=== PATIENT | male | born 1950 | race Caucasian/White ===

== ENCOUNTER 2016-08-12 08:32 | Outpatient (CLI) | payer MEDICARE ==
[2015-10-01 11:34] VITALS: BMI 18.2
--- NOTE | ~2016-08-12 | CN ---
PATIENT NAME:MAKEDA CHARLES MEDICAL RECORD: [id number] : 52 LOCATION:.ER ADMIT DATE: ACCOUNT: [id number] CONSULTING PHYSICIAN: NAOMI ROCA MD REFERRING PHYSICIAN: CHIDI BENÍTEZ MD DATE OF CONSULTATION: 08/12/2016 CARDIOLOGY CONSULTATION DIAGNOSES: 1. Unstable angina. 2. New onset atrial fibrillation, unknown duration. 3. End-stage renal failure, on dialysis. 4. Hypertension. HISTORY OF PRESENT ILLNESS: This is a gentleman with no previous cardiac history during dialysis today, began having severe left-sided chest pain, is a very compatible with angina, a dull aching, squeezing sensation on the left side. His EKG is with atrial fibrillation. He has not been told this in the past. He has no acute ST-T abnormalities. He has no cardiac history in the past. He is on Coreg for blood pressure. He has been treated as an outpatient over the past months with intermittent antibiotics. His chest x-ray is compatible with right middle lobe pneumonia. PHYSICAL EXAMINATION: GENERAL APPEARANCE: Well-nourished, well-developed, appears stated age. Level of distress, comfortable. PSYCHIATRIC: Mental status, alert, normal affect. Orientation, oriented to time, place and person. EYES: Lids and conjunctiva, noninjected. No discharge, no pallor. ENT: Lips, teeth, gums, normal dentition. Oropharynx, no cyanosis, no pallor. NECK: Carotid arteries, bilateral normal upstroke, no bruits, no thrills. JUGULAR VEINS: No jugular venous pressure or distention. CERVICAL LYMPH NODES: Nontender, nonenlarged. THYROID: Not enlarged. Nontender. No nodules. LUNGS: Respiratory effort, unlabored. CHEST: Normal curvature. No thoracic deformity. No chest wall tenderness. Percussion, resonant. Auscultation, clear. No wheezes, no rales, no rhonchi. CARDIOVASCULAR: Precordial exam, nondisplaced. No heaves or pericardial thrills. Rate and rhythm, regular. Heart sounds, normal S1, normal S2. No S3, no gallop, no rub. Systolic murmur, not heard. Diastolic murmur, not heard. EXTREMITIES: No cyanosis, no edema. Peripheral pulses, full and equal in all extremities, except as noted. No bruits appreciated. ABDOMEN: Soft, nondistended. Normal aorta. No bruit. Nontender. No masses. Liver, nontender, no hepatomegaly. Spleen, nontender, no splenomegaly. MUSCULOSKELETAL: No joint tenderness. No joint swelling. No erythema. NEUROLOGICAL: Normal gait, normal strength, normal tone. SKIN: Warm and dry. REVIEW OF SYSTEMS: The patient reports easy bruising but reports no swollen glands. The patient reports no fever, no night sweats, no significant weight gain, no significant weight loss. No significant exercise tolerance. The patient reports no dry eyes, no irritation, no vision change. Patient reports no difficulty hearing and no ear pain. Patient reports no frequent nose bleeds or nose and sinus problems. Patient reports on arm pain on exertion. No CONSULT REPORT [id number] MAKEDA CHARLES shortness of breath while lying down. No history of heart murmur. Patient reports no cough, no wheezing or coughing up blood. Patient reports no abdominal pain, no vomiting. Normal appetite. No diarrhea and not vomiting blood. No nausea and no constipation. Patient reports no incontinence. No difficulty urinating. No hematuria. No increased frequency. Patient reports no muscle aches. No weakness, no arthralgias, no back pain. No swelling of the extremities. Patient reports no abnormal mole, no jaundice, no rashes. Reports no loss of consciousness. No weakness and no numbness. No seizures, dizziness, or headaches. The patient reports no depression, no sleep disturbance, feeling safe in a relationship and no alcohol abuse. Patient reports on fatigue. Reports no runny nose or sinus pressure. No itching, no hives, and no frequent sneezing. OVERALL IMPRESSION: Chest pain compatible with angina. The right middle lobe pneumonia would not explain the left-sided chest pain that is typical for angina in this gentleman with multiple risk factors, most likely has hemodynamically significant coronary artery disease. We will proceed with coronary angiography. We will start IV antibiotics first and give him Plavix. TRANSINT:[id number] Voice Confirmation ID: [id number] DOCUMENT ID: [id number] NAOMI ROCA MD CC: [id number] DICTATION DATE: 08/12/16 1037 CHAIN HOIST OPERATOR: 08/12/16 1343 [facility] [address] [place] [address]
--- NOTE | ~2016-08-12 | HEMODYNAMI ---
PATIENT:MAKEDA CHARLES MEDICAL RECORD: [id number] : 52 [id number] AD[facility]ION DATE: 08/12/16 Generatedon:08/12/201616:45 Patient name: MAKEDA CHARLES Patient #: [id number] SSN: : 1950 Date of study: 08/12/2016 Page: Of Hemodynamic Procedure Report Patient Data Patient Demographics Procedure consent was obtained First Name: MAKEDA Gender: Male Last Name: MELVIN : 1950 [facility] Initial: ANASTASIIA Age: 66 year(s) Patient #: [id number] Race: Unknown Additional ID: [id number] Contact details [address]: [address] [place] [address] State: [place] City: [place] Zip code: [address] Past Medical History Allergies Allergen Reaction Date Comments Reported Other allergy 08/12/2016 dilaudid, palquinel Admission Admission Data Admission Date: 08/12/2016 Admission Time: 8:32 Admit Source: Emergency department Lab Results Lab Result Date: 08/12/2016 Lab Result Time: 9:40 Biochemistry Name Units Result Min Max BUN mg/dl 25 --(----)-* 7 18 Creatinine mg/dl 5 --(----)-* 0.6 1.3 CBC Name Units Result Min Max Hematocrit % 44.6 --(*---)-- 42 54 Hemoglobin g/dl 15.1 --(-*--)-- 13.5 17.5 Procedure Procedure Types Cath Procedure Diagnostic Procedure LHC LHC w/Coronaries w/Grafts PCI Procedure SVG-BMS/KONG Initial Miscellaneous Procedures Moderate Sedation up to 30 minutes Procedure Description Procedure Date Procedure Date: 08/12/2016 Procedure Start Time: 16:15 Procedure End Time: 16:44 Procedure Staff Name Function Eulalio Garcia MD Performing Physician Armida Bay RT Scrub Scott Christian RN Nurse Milton Avila RT Monitor Procedure Data Cath Procedure Fluoroscopy Diagnostic fluoroscopy Total fluoroscopy Time: 9.9 time: 9.9 min min Diagnostic fluoroscopy Total fluoroscopy dose: dose: 285.08 mGy 285.08 mGy Contrast Material Contrast Material Type Amount (ml) Isovue 300 159 Entry Location Entry Primary Successful Side Size Upsize Upsize Entry Closure Succes sful Closure Location (Fr) 1 (Fr) 2 (Fr) Remarks Device Remarks Femoral Right 5 Fr 6 Fr Exoseal artery Short Estimated blood loss: 10 ml Diagnostic catheters Device Type Used For End Catheter Placement Cordis 5Fr Pigtail Procedure Catheter (MP) Cordis 5Fr JL 4.0 Procedure Catheter (MP) Cordis 5Fr 3DRC Catheter Procedure (MP) Diagnostic Infinity 5Fr Procedure AR 2 MOD catheter Procedure Complications No complications Procedure Medications Medication Administration Route Dosage Oxygen NC 2 l/min Heparin Flush Bag added to field 2 bags (1000units/500ml NS) 0.9% NaCl I.V. 100 ml/hr Fentanyl I.V. 50 mcg Versed I.V. 1 mg Fentanyl I.V. 50 mcg Versed I.V. 1 mg Heparin Bolus I.V. 4000 units Integrilin (Bolus I.V. 4.5 ml 2mg/ml) Hemodynamics Rest HGB: 15.1 (g/dl) Heart Rate: 89 (bpm) Snapshots Pre Cath Intra NCS Post Cath Vital Signs Time Heart Resp SPO2 NIBP (mmHg) Rhythm Pain Sedation Rate (ipm) (%) Status Level (bpm) 15:51:51 97 20 94 127/80(108) NSR 0 (11) 10(A) , No pain 15:55:55 91 18 99 114/74(93) NSR 0 (11) 10(A) , No pain 16:00:03 91 19 97 82/60(74) NSR 0 (11) 10(A) , No pain 16:04:00 87 17 97 71/55(67) NSR 0 (11) 10(A) , No pain 16:07:52 91 18 99 88/59(84) NSR 0 (11) 10(A) , No pain 16:11:49 91 18 99 101/63(82) NSR 0 (11) 9(A) , No pain 16:15:53 91 14 98 93/59(77) NSR 0 (11) 9(A) , No pain 16:19:51 93 16 98 87/64(76) NSR 0 (11) 9(A) , No pain 16:23:48 94 15 98 91/61(80) NSR 0 (11) 9(A) , No pain 16:27:48 92 15 97 82/56(71) NSR 0 (11) 9(A) , No pain 16:31:48 92 16 98 81/49(70) NSR 0 (11) 9(A) , No pain 16:35:45 92 16 98 88/55(75) NSR 0 (11) 10(A) , No pain 16:39:43 94 16 98 92/60(81) NSR 0 (11) 10(A) , No pain 16:43:40 95 16 98 87/63(76) NSR 0 (11) 10(A) , No pain Medications Time Medication Route Dose Verified Delivered Reason Notes Effectiveness by by 15:52:11 Oxygen NC 2 Scott Scott Per physician l/min Gino Christian RN RN 15:52:21 Heparin Flush added 2 Scott Scott used for Bag to bags Gino Christian RN procedure (1000units/500ml field RN NS) 15:52:31 0.9% NaCl I.V. 100 Scott Scott Per physician ml/hr Gino Christian RN RN 16:10:28 Fentanyl I.V. 50 Scott Scott for sedation mcg Gino Christian RN RN 16:10:38 Versed I.V. 1 mg Scott Scott for sedation Gino Christian RN RN 16:13:36 Fentanyl I.V. 50 Scott Scott for sedation mcg Gino Christian RN RN 16:13:42 Versed I.V. 1 mg Scott Scott for sedation Gino Christian RN RN 16:23:41 Heparin Bolus I.V. 4000 Scott Scott for units Gino Christian RN anticoagulation RN 16:25:37 Integrilin I.V. 4.5 Scott Scott for Wasted (Bolus 2mg/ml) ml Gino Christian RN antiplatelet 5.5 ml RN therapy of vial Procedure Log Time Note 15:31:19 Informed consent obtained and on chart 15:32:03 Lab Result : Hemoglobin 15.1 g/dl 15:32:03 Lab Result : Creatinine 5 mg/dl 15:32:03 Lab Result : BUN 25 mg/dl 15:32:03 Lab Result : Hematocrit 44.6 % 15:32:21 Diagnostic Cath status Emergency 15:32:22 Scott Christian RN sent for patient. Start room use. 15:32:23 Time tracking: Regular hours 15:32:28 Plan of Care:Hemodynamics will remain stable., Cardiac rhythm will remain stable., Comfort level will be maintained., Respiratory function will remain adequate., Patient/ family verbilizes understanding of procedure., Procedure tolerated without complication., Recovers from procedure without complications.. 15:32:32 Admit Source: Emergency department 15:43:00 Patient received from ED to CCL 3 Alert and oriented. Tansferred to table in Supine position. 15:43:01 Warm blankets applied, and beverly hugger turned on for patient comfort. 15:43:02 Correct patient and procedure confirmed by team. 15:43:03 ECG and BP/O2 sat monitors applied to patient. 15:43:12 H&P Date Dictated: 08/12/2016 Within 30 days and on chart.. 15:43:14 Pre-procedure instructions explained to patient. 15:43:15 Pre-op teaching completed and patient verbalized understanding. 15:50:53 Vital chart was started 15:52:11 Oxygen 2 l/min NC was administered by Scott Christian RN; Per physician; 15:52:21 Heparin Flush Bag (1000units/500ml NS) 2 bags added to field was administered by Scott Christian RN; used for procedure; 15:52:31 0.9% NaCl 100 ml/hr I.V. was administered by Scott Christian RN; Per physician; 15:56:06 Family in waiting room. 15:56:09 Patient NPO since Breakfast. 15:56:22 Patient allergic to Other allergydilaudid, palquinel 15:56:26 Is patient on blood thinner?Yes 15:56:29 ACC The patient was administered the following blood thiners within the last 24 hours: ACCAspirin 15:56:30 Patient diabetic? No. 15:56:33 Previous problem with sedation/anesthesia? No ? 15:56:34 Snore? Yes 15:56:34 Sleep apnea? Yes 15:56:35 Deviated septum? No 15:56:36 Opens mouth fully? Yes 15:56:36 Sticks out tongue? Yes 15:56:40 Airway obstruction? Yes copd 15:57:06 Dentures? No ? 15:57:12 Pre procedure: right dorsailis pedis pulse Doppler 15:57:19 Pre procedure: right posterior tibial pulse Doppler 15:57:23 Patient pain scale 6/10 ?. 15:57:31 IV patent on arrival in right forearm with 0.9% NaCl at [facility]. 15:59:59 Lab results completed and on chart. 16:00:04 Right groin area was prepped with chlora-prep and draped in sterile fashion 16:00:05 Alarms reviewed by R. N. 16:00:05 Sharps counted by scrub and verified by R.N. 16:00:08 Use device set Femoral Dx 16:00:09 Tegaderm 4 x 4 opened to sterile field. 16:00:10 Acist Manifold opened to sterile field. 16:00:10 Acist Hand Control opened to sterile field. 16:00:11 Acist Syringe opened to sterile field. 16:00:12 Bag Decanter opened to sterile field. 16:00:12 Medline Cath Pack opened to sterile field. 16:00:13 Terumo 5Fr [place] Sheath opened to sterile field. 16:00:13 St Rudy 260cm J .035 wire opened to sterile field. 16:00:14 Diagnostic Infinity 5Fr Multipack catheter opened to sterile field. 16:00:29 Baseline sample Acquired. 16:00:33 Rhythm: sinus rhythm 16:00:35 Full Disclosure recording started 16:03:09 Zero performed for pressure channel P1 16:07:06 Zero performed for pressure channel P1 16:10:19 Physician arrived 16::19 --------ALL STOP TIME OUT------ 16:10:20 Final Timeout: patient, procedure, and site verified with staff and physician. All members of the team are in agreement. 16:10:23 Right groin site verified by team. 16:10:26 Physical assessment completed. ASA score P 2 - A patient with mild systemic disease as per Eulalio Garcia MD. 16:10:28 Fentanyl 50 mcg I.V. was administered by Scott Christian RN; for sedation; 16:10:38 Versed 1 mg I.V. was administered by Scott Christian RN; for sedation; 16:10:53 Sedation plan: IV Moderate Sedation Versed, Fentanyl 16:13:36 Fentanyl 50 mcg I.V. was administered by Scott Christian RN; for sedation; 16:13:42 Versed 1 mg I.V. was administered by Scott Christian RN; for sedation; 16:15:30 Procedure started. 16:15:37 Local anesthetic to right femoral artery with Lidocaine 2% by Eulalio Garcia MD.INITIAL ACCESS ONLY 16:16:00 A 5 Fr sheath was inserted into the Right Femoral artery 16:17:15 A Cordis 5Fr Pigtail Catheter (MP) was advanced over the wire and used for Procedure. 16:17:18 LV gram done using ESPINAL 16:17:20 Injector settings: Ml/sec: 10, Volume: 20, 16:17:26 EF : 30 % 16:17:32 Catheter exchanged over wire. 16:17:53 A Cordis 5Fr JL 4.0 Catheter (MP) was advanced over the wire and used for Procedure. 16:18:11 LCA angiography performed. 16:18:56 Procedure type changed to Cath procedure, Diagnostic procedure, LHC, LHC w/Coronaries w/Grafts, PCI procedure, SVG-BMS/KONG Initial, Miscellaneous Procedures, Moderate Sedation up to 30 minutes 16:19:10 ByteActive BasixCompak Inflation Kit opened to sterile field. 16:19:10 Russell Whisper J 300cm 0.014 guide wire opened to sterile field. 16:20:00 Catheter exchanged over wire. 16:20:04 A Cordis 5Fr 3DRC Catheter (MP) was advanced over the wire and used for Procedure. 16:20:09 POOLE to LAD angiography performed. 16:20:34 RCA angiography performed. 16:20:52 Catheter exchanged over wire. 16:21:10 A Diagnostic Infinity 5Fr AR 2 MOD catheter was advanced over the wire and used for Procedure. 16:22:17 SVG to Circ angiography performed. 16:22:33 SVG to RCA angiography performed. 16:23:31 Catheter removed. 16:23:41 Heparin Bolus 4000 units I.V. was administered by Scott Christian RN; for anticoagulation; 16:23:42 Terumo 6Fr [place] Sheath opened to sterile field. 16:23:49 Sheath upsized to a 6 Fr Short. 16:24:54 Medtronic Launcher 6Fr MB 2 guide catheter opened to sterile field. 16:25:06 6 Fr MB2 guide catheter was inserted over the wire 16:25:37 Integrilin (Bolus 2mg/ml) 4.5 ml I.V. was administered by Scott Christian RN; for antiplatelet therapy; Wasted 5.5 ml of vial 16:27:02 WHISPER wire advanced. 16:27:46 Wire removed. 16:27:53 Sandpoint Sci Choice PT Extra Support J 300cm .014 gu opened to sterile field. 16:28:00 PT ES wire advanced. 16:28:33 Wire advanced across lesion. 16:30:30 Wire removed. 16:30:34 Sandpoint Sci Choice PT Extra Support J 300cm .014 gu opened to sterile field. 16:30:44 PT ES wire advanced. 16:31:12 Wire advanced across lesion. 16:31:26 Inflation number: 1 A Sandpoint Sci Harney 3.5 X 15 balloon was prepped and advanced across the Aorta Right -> Dist RCA, then inflated to 11 LAYTON for 0:10 (min:sec). 16:31:48 MULTIPLE INFLATIONS MADE TO 11 ATMS. 16:31:58 Inflation number: 2 The Sandpoint Sci Harney 3.5 X 15 balloon was reinflated across the Aorta Right -> Dist RCA, to 17 LAYTON for 0:10 (min:sec). 16:32:35 Balloon removed over the wire. 16:34:07 Inflation Number: 3 A Medtronic Resolute 3.5 X 15 stent was prepped and advanced across the Aorta Right -> Dist RCA. The stent was deployed at 17 LAYTON for 0:10 (min:sec). 16:34:45 Stent catheter was removed intact over wire. 16:35:26 Inflation Number: 4 A Medtronic Resolute 3.5 X 18 stent was prepped and advanced across the Aorta Right -> Dist RCA. The stent was deployed at 17 LAYTON for 0:10 (min:sec). 16:36:42 Stent catheter was removed intact over wire. 16:37:00 Inflation Number: 5 A Medtronic Resolute 3.5 X 22 stent was prepped and advanced across the Aorta Right -> Dist RCA. The stent was deployed at 21 LAYTON for 0:10 (min:sec). 16:38:13 Stent catheter was removed intact over wire. 16:38:14 Wire removed. 16:38:15 Guide catheter removed. 16:38:21 Cordis 6Fr Exoseal opened to sterile field. 16:38:33 Sheath removed intact; hemostasis achieved with Exoseal to the Right Femoral artery. 16:38:35 Procedure ended.(Physican Out) 16:40:15 Fluoroscopy time 09.90 minutes. 16:40:22 Fluoroscopy dose: 285.08 mGy 16:40:22 Flurop Dose total: 285.08 16:41:42 Contrast amount:Isovue 300 159ml. 16:41:43 Sharps counted by scrub and verified by R.N. 16:42:50 Insertion/operative site no bleeding no hematoma. 16:42:52 Post-op/insertion site Right Femoral artery dressed using a 4 x 4 and Tegaderm. 16:42:56 Post right femoral artery:stable, soft, clean and dry 16:42:58 Post Procedure Pulses reassessed and unchanged 16:43:01 Post procedure rhythm: unchanged. 16:43:03 Post procedure instruction explained to patient.Patient verbalizes understanding. 16:43:06 Estimated blood loss: 10 ml 16:43:07 Patient needs reinforcement of post procedure teaching. 16:43:58 Procedure and supply charges have been captured, reviewed, submitted and are correct. 16:44:00 Procedure Complication : No complications 16:44:01 Vital chart was stopped 16:44:02 See physician's report for complete and final results. 16:44:14 Report given to Pre/Post Procedure Room. 16:44:17 Patient transfered to Pre/Post Procedure Room with Stretcher. 16:44:19 Procedure ended. 16:44:19 Full Disclosure recording stopped 16:44:50 End room use (Document Last) Intervention Summary Intervention Notes Time ActionType Lesion and Equipment Action# Pressure Duration Attributes Used 16:31:26 Inflate Aorta Right Sandpoint 1 11 00:10 balloon -> Dist RCA Sci Harney 3.5 X 15 balloon 16:31:58 Reinflate Aorta Right Sandpoint 2 17 00:10 balloon -> Dist RCA Sci Harney 3.5 X 15 balloon 16:34:07 Place stent Aorta Right Medtronic 3 17 00:10 -> Dist RCA Resolute 3.5 X 15 stent 16:35:26 Place stent Aorta Right Medtronic 4 17 00:10 -> Dist RCA Resolute 3.5 X 18 stent 16:37:00 Place stent Aorta Right Medtronic 5 21 00:10 -> Dist RCA Resolute 3.5 X 22 stent Device Usage Item Name Manufacture Quantity Catalog Number Hospital Part Current Mini mal Lot# / Charge Number Stock Stock Serial# Code Tegaderm 4 3M 1 [id number] 322846 932866 5 x 4 Acist Acist 1 26483 996704 950319 204431 5 Familink Systems Conferensum Acist Hand Acist 1 86153 347226 645142 055544 5 Pellet Technology USA Systems Inc Acist Acist 1 60031 977340 479762 236484 20 Syringe IntelliChem Systems Conferensum Bag Microtek 1 2002S 883387 06994 386248 5 Trudev Inc. Medline Cardinal 1 [id number] 384009 08962 951253 5 Cath Pack Health Terumo 5Fr Terumo 1 [id number] 534529 275998 326119 [address] Rudy 1 002827 877908 815216 432884 30 260cm J .035 wire Diagnostic Cardinal 1 [id number] 246446 14578 105652 30 Infinity Health 5Fr Multipack catheter Cordis 5Fr Cardinal 1 832066 5 Pigtail Health Catheter (MP) Cordis 5Fr Cardinal 1 012517 5 JL 4.0 Health Catheter (MP) Merit Merit 1 [id number] 654164 524114 598152 15 BasixCompak Medical Inflation Kit Russell Russell 1 [id number] 710098 514260 213165 5 Whisper J Vascular 300cm 0.014 guide wire Cordis 5Fr Cardinal 1 853291 5 3DRC Health Catheter (MP) Diagnostic Cardinal 1 [id number] 263147 525926 187864 20 Infinity Health 5Fr AR 2 MOD catheter Terumo 6Fr Terumo 1 [id number] 560773 603266 725284 40 [place] Sheath Medtronic Medtronic 1 [id number] 265310 84297 214004 1 Launcher 6Fr MB 2 guide catheter Sandpoint Sci Sandpoint 2 [id number] 183203 491361 522108 5 Choice PT Scientific Extra Support J 300cm .014 gu Sandpoint Sci Sandpoint 1 [id number] 627640 553050 910818 1 [id number] [email or web address] Scientific 3.5 X 15 balloon Medtronic Medtronic 1 [id number] 440286 165385 3 [id number] Resolute 3.5 X 15 stent Medtronic Medtronic 1 [id number] 365609 374271 0 [id number] Resolute 3.5 X 18 stent Medtronic Medtronic 1 [id number] 797808 611258 6 [id number] Resolute 3.5 X 22 stent Cordis 6Fr Cardinal 1 [id number] 325236 737282 683640 10 [facility] [email or web address] Signature Audit [place] Stage Time Signature Unsigned Intra-Procedure 08/12/2016 Milton Avila 4:45:10 PM RT(R) Signatures Monitor : Milton Avila RT Signature : Date : Time : [address] [address]
--- NOTE | ~2016-08-12 | OP ---
PATIENT NAME: MAKEDA CHARLES MEDICAL RECORD: [id number] :52 LOCATION:D.CAT ADMISSION DATE: SURGEON: NAOMI ROCA MD DATE OF OPERATION: 08/12/2016 PROCEDURES: 1. PTCA stent vein graft to RCA. 2. Left heart catheterization. 3. Selective coronary angiography. 4. Left ventriculogram. 5. Vein graft angiography. 6. POOLE angiography. INDICATION: Angina and coronary artery disease. PROCEDURE IN DETAIL: After informed consent was obtained and after detailed explanation of risks, benefits as well as alternative therapies, the patient elected to proceed with angiogram and angioplasty. The right femoral area was prepped and draped in normal sterile fashion. The right femoral artery was cannulated via modified Seldinger technique with placement of 6-Tristanian sheath. All catheters exchanged through this sheath. FINDINGS: The left ventriculogram was performed in the standard 30-degree ESPINAL view reveals global hypokinesis, ejection fraction is 30%. SELECTIVE CORONARY ANGIOGRAPHY: 1. Left main is with no significant angiographic disease. 2. Left anterior descending has an 80% to 90% stenosis proximally, this feeds to a large non-grafted LAD diagonal. 3. The LAD is then totally occluded in mid vessel. POOLE to the distal LAD is widely patent. The distal LAD is widely patent. 4. The left circumflex had a total occlusion in the mid vessel. 5. Vein graft to the circumflex is widely patent. 6. Right coronary has a total occlusion in the mid vessel. 7. Vein graft to the right coronary is patent; however, there are 3 areas of 90% stenosis. PERCUTANEOUS TRANSLUMINAL ANGIOPLASTY STENT OF THE VEIN GRAFT TO THE RIGHT CORONARY: Stents used from distal to proximal are 3.5 x 15, 3.5 x 18, 3.5 x 22, all Resolute drug-eluting stents. Result was 0% residual stenosis. OVERALL IMPRESSION: Successful percutaneous transluminal coronary angioplasty stent of the vein graft to the RCA going from multiple areas of 80% and 90% stenosis to 0% residual with plan for PTCA stent of the proximal LAD leading into the non-grafted large diagonal system in the near future. TRANSINT:[id number] Voice Confirmation ID: [id number] DOCUMENT ID: [id number] OPERATIVE REPORT [id number] MAKEDA CHARLES NAOMI ROCA MD CC: [id number] DICTATION DATE: 08/12/16 1655 WET WASH ASSEMBLER: 08/12/16 2328 DEP CLI 08/12/16 [place] [id number] [place] [id number]
[~2016-08-12 08:32] MED LIST: ASPIRIN 81 MG E81 MG PO; COREG6.25 MG PO; EFFEXOR37.5 MG PO; ENDOCET PO; NEPHRO-VITE RX1 TAB PO; PHOSLO667 MG; PRILOSEC20 MG; ULTRAM50 MG PO; VALIUM5 MG PO; ZOLOFT100 MG
[2016-08-12 09:56] LABS: BASOPHILS 0.4 % (0-2); EOSINOPHILS 2.6 % (0-7); HEMATOCRIT 44.6 % (42.0-54.0); HEMOGLOBIN 15.1 g/dL (13.5-17.5); IMMATURE GRANULOCYTES 0.4 % (0-5); LYMPHOCYTES 18.5 % (15-50); MCH 35.8 pg (26.0-34.0); MCHC 33.9 g/dL (31.0-37.0); MCV 105.7 fL (80.0-100.0); MEAN PLATELET VOLUME 8.8 fL (7.4-10.4); MONOCYTES 8.3 % (2-11); NEUTROPHILS 69.8 % (40-80); PLATELET COUNT 182 10x3/uL (130-400); RBC 4.22 10x6/uL (4.20-6.10); RDW 15.6 % (11.5-14.5); WBC 8.4 10x3/uL (4.8-10.8)
[2016-08-12 10:11] LABS: ALKALINE PHOSPHATASE 81 U/L (46-116); ALT (SGPT) 19 U/L (10-68); BILIRUBIN - TOTAL 0.39 mg/dL (0.2-1.3); CALC OSMOLALITY 280 mosm/kg (275-300); CALCIUM 9.3 mg/dL (8.5-10.1); CARBON DIOXIDE 36.6 mmol/L (21.0-32.0); CHLORIDE - SERUM 99 mmol/L (98-107); GLUCOSE 82 mg/dL (74-106); POTASSIUM - SERUM 3.6 mmol/L (3.5-5.1); PROTEIN - SERUM 7.2 g/dL (6.4-8.2); SODIUM 139 mmol/L (136-145); UREA NITROGEN 25 mg/dL (7-18); eGFR NON AFRICAN AMERICAN 12 mL/min (90-120)
[2016-08-12 10:37] LABS: CKMB 7.1 U/L (0.0-3.6); CREATINE KINASE 67 UL (21-232)
[2016-08-12 10:38] LABS: TROPONIN-I 0.119 ng/mL (0.000-0.060)
[2016-08-12] MEDS ORDERED: PLAVIX75 MG PO (17:50)
--- NOTE | 2016-08-12 20:01 | NUR ---
1715-RIGHT GROIN CDI, NO HEMATOMA, SMALL DOT OF BLOOD NOTED ON DRESSING BUT NO ACTIVE BLEEDING NOTED, SOFT TO TOUCH, AT SIDE 1745-NO CHANGES NOTED TO RIGHT GROIN.
[2016-08-12] MEDS ORDERED: BETAPACE 80 MG80 MG PO (20:29)
[2016-08-12] MEDS ORDERED: LEVAQUIN500 MG PO (20:30)
== END 2016-08-12 21:15 | disposition home or self-care (01) ==
LOC: D.CATH 08:32 → D.ER 08:32 → EDSTATUS 12:45 → D.CATH 21:15
PROVIDERS: Emergency Medicine
DX: I25.710 Atherosclerosis of autologous vein coronary artery bypass graft(s) with unstable angina pectoris (principal); I25.110 Atherosclerotic heart disease of native coronary artery with unstable angina pectoris; I48.91 Unspecified atrial fibrillation; I12.0 Hypertensive chronic kidney disease with stage 5 chronic kidney disease or end stage renal disease; N18.6 End stage renal disease; Z99.2 Dependence on renal dialysis; J18.8 Other pneumonia, unspecified organism; Z79.2 Long term (current) use of antibiotics
CPT/HCPCS: 93459; C9604

== ENCOUNTER 2016-08-18 09:19 | Outpatient (CLI) | payer MEDICARE ==
[~2016-08-18] VITALS: Ht 170.2 cm; Wt 80.0 kg
--- NOTE | ~2016-08-18 | HEMODYNAMI ---
PATIENT:MAKEDA CHARLES MEDICAL RECORD: [id number] : 52 LOCATION:[facility] ADMISSION DATE: 08/18/16 Generatedon:08/18/201612:23 Patient name: MAKEDA CHARLES Patient #: [id number] : 1950 Date of study: 08/18/2016 Page: Of Hemodynamic Procedure Report Patient Data Patient Demographics Procedure consent was obtained First Name: MAKEDA Gender: Male Last Name: MELVIN : 1950 [facility] Initial: ANASTASIIA Age: 66 year(s) Patient #: [id number] Race: SSN: [id number] Additional ID: [id number] Contact details Address: [address] [place] [address] State: [place] City: [place] Zip code: [address] Past Medical History Allergies Allergen Reaction Date Comments Reported Other allergy 08/12/2016 dilaudid, palquinel Admission Admission Data Admission Date: 08/18/2016 Admission Time: 9:19 Arrival Date: 08/18/2016 Arrival Time: 11:30 Admit Source: Other Insurance Payor: Medicare Height (in.): 67 BSA: 1.54 (m2) Height (cm.): 170.18 BMI: 16.6 (kg/m2) Weight (lbs.): 106 Weight (kg.): 48.08 Lab Results Lab Result Date: 08/12/2016 Lab Result Time: 9:40 Biochemistry Name Units Result Min Max BUN mg/dl 25 --(----)-* 7 18 Creatinine mg/dl 5 --(----)-* 0.6 1.3 CBC Name Units Result Min Max Hematocrit % 44.6 --(*---)-- 42 54 Hemoglobin g/dl 15.1 --(-*--)-- 13.5 17.5 Procedure Procedure Types Cath Procedure PCI Procedure Coronary Stent Initial Miscellaneous Procedures Moderate Sedation up to 30 minutes Procedure Description Procedure Date Procedure Date: 08/18/2016 Procedure Start Time: 12:08 Procedure End Time: 12:19 Procedure Staff Name Function Eulalio Garcia MD Performing Physician Zuly Fraser RT Scrub Xavier Ramesh RN Nurse Misty Spivey RT Monitor Procedure Data Cath Procedure Fluoroscopy Diagnostic fluoroscopy Total fluoroscopy Time: 1.4 time: 1.4 min min Diagnostic fluoroscopy Total fluoroscopy dose: dose: 93.27 mGy 93.27 mGy Contrast Material Contrast Material Type Amount (ml) Isovue 370 35 Entry Location Entry Primary Successful Side Size Upsize Upsize Entry Closure Succes sful Closure Location (Fr) 1 (Fr) 2 (Fr) Remarks Device Remarks Femoral Right 6 Fr Exoseal artery Short Estimated blood loss: 5 ml Procedure Complications No complications Procedure Medications Medication Administration Route Dosage Oxygen NC 2 l/min Lidocaine 2% added to field 20 Heparin Flush Bag added to field 2 bags (1000units/500ml NS) 0.9% NaCl I.V. 100 ml/hr Versed I.V. 0.5 mg Fentanyl I.V. 25 mcg Heparin Bolus I.V. 4000 units Benadryl I.V. 25 mg Hemodynamics Rest BSA: 1.54 (m2) HGB: 15.1 (g/dl) O2 Consumption: Estimated: 171.66 (ml/min) O2 Co nsumption indexed: Estimated:111.47 (ml/min/m) Heart Rate: 56 (bpm) Snapshots Pre Cath Intra NCS Post Cath Vital Signs Time Heart Resp SPO2 NIBP Rhythm Pain Sedation Rate (ipm) (%) (mmHg) Status Level (bpm) 11:57:37 54 21 99 101/25(48) NSR 0 (11) 10(A) , No pain 12:00:16 56 20 100 90/64(76) NSR 0 (11) 10(A) , No pain 12:05:16 52 18 100 87/61(0) NSR 0 (11) 9(A) , No pain 12:10:35 50 17 99 79/47(56) NSR 0 (11) 9(A) , No pain 12:14:39 53 17 99 74/36(48) NSR 0 (11) 9(A) , No pain 12:18:40 51 18 98 80/42(49) NSR 0 (11) 9(A) , No pain 12:21:30 53 18 98 80/44(65) NSR 0 (11) 9(A) , No pain Medications Time Medication Route Dose Verified Delivered Reason Notes Effectiveness by by 11:51:15 Oxygen NC 2 Eulalio Edwinie used for l/min Jose Ramesh RN procedure 11:54:31 Benadryl I.V. 25 mg Eulalio Park used for Jose Ramesh RN procedure 12:00:24 Lidocaine 2% added 20ml Eulalio Tsai for local to vial Jose Garcia MD anesthetic field 12:00:31 Heparin Flush added 2 Eulaliojulita Tsai used for Bag to bags Jose Garcia MD procedure (1000units/500ml field NS) 12:00:41 0.9% NaCl I.V. 100 Eulalio Park Per physician ml/hr Jose Ramesh RN 12:02:53 Versed I.V. 0.5 Eulalio Park for sedation mg Jose Ramesh RN 12:02:58 Fentanyl I.V. 25 Eulalio Park for sedation mcg Jose Ramesh RN 12:10:26 Heparin Bolus I.V. 4000 Eulalio Park for units Jose Ramesh RN anticoagulation Procedure Log Time Note 11:40:39 Informed consent obtained and on chart 11:40:46 Admit Source: Other 11:40:51 Arrival Date: 08/18/2016 11:30:00 AM 11:40:57 Insurance Payor : Medicare 11:42:13 Diagnostic Cath Status : Elective 11:43:02 Xavier Ramesh RN sent for patient. Start room use. 11:43:03 Time tracking: Regular hours 11:43:08 Plan of Care:Hemodynamics will remain stable., Cardiac rhythm will remain stable., Comfort level will be maintained., Respiratory function will remain adequate., Patient/ family verbilizes understanding of procedure., Procedure tolerated without complication., Recovers from procedure without complications.. 11:44:46 Patient received from Pre/Post Procedure Room to CCL 3 Alert and oriented. Tansferred to table in Supine position. 11:44:47 Warm blankets applied, and beverly hugger turned on for patient comfort. 11:44:48 Correct patient and procedure confirmed by team. 11:44:49 ECG and BP/O2 sat monitors applied to patient. 11:51:15 Oxygen 2 l/min NC was administered by Xavier Ramesh RN; used for procedure; 11:54:31 Benadryl 25 mg I.V. was administered by Xavier Ramesh RN; used for procedure; 11:56:24 Vital chart was started 11:56:25 Baseline sample Acquired. 11:56:31 Rhythm: sinus rhythm 11:56:33 Full Disclosure recording started 11:57:28 H&P Date Dictated: 08/18/2016 Within 30 days and on chart., H&P Addendum completed by physician on day of procedure. (MUST COMPLETE FOR ALL OUTPATIENTS). 11:57:36 Pre-procedure instructions explained to patient. 11:57:37 Pre-op teaching completed and patient verbalized understanding. 11:57:38 Family in waiting room. 11:57:39 Patient NPO since Midnight. 11:59:03 Is the patient allergic to Iodine/contrast media? No. 11:59:06 Was the patient premedicated? No 11:59:11 Is patient on blood thinner?Yes 11:59:14 ACC The patient was administered the following blood thiners within the last 24 hours: ACCPlavix 11:59:28 Patient diabetic? No. 11:59:32 Previous problem with sedation/anesthesia? No ? 11:59:36 Snore? Yes 11:59:39 Sleep apnea? No 11:59:41 Deviated septum? No 11:59:41 Opens mouth fully? Yes 11:59:42 Sticks out tongue? Yes 11:59:58 Airway obstruction? Yes copd 12:00:04 Dentures? Yes in tight 12:00:22 Pre procedure: right dorsailis pedis pulse 1+ Palpable, but thready & weak; easily obliterated 12:00:24 Lidocaine 2% 20ml vial added to field was administered by Eulalio Garcia MD; for local anesthetic; 12:00:24 Patient pain scale 0/10 ?. 12:00:31 Heparin Flush Bag (1000units/500ml NS) 2 bags added to field was administered by Eulalio Garcia MD; used for procedure; 12:00:31 IV patent on arrival in right forearm with 0.9% NaCl at [facility]. 12:00:37 Lab results completed and on chart. 12:00:41 0.9% NaCl 100 ml/hr I.V. was administered by Buffie Ramesh RN; Per physician; 12:00:43 Right groin area was prepped with chlora-prep and draped in sterile fashion 12:00:44 Alarms reviewed by R. N. 12:00:44 Sharps counted by scrub and verified by R.N. 12:00:46 Physician arrived 12:00:47 --------ALL STOP TIME OUT------ 12:00:47 Final Timeout: patient, procedure, and site verified with staff and physician. All members of the team are in agreement. 12:00:50 Right groin site verified by team. 12:00:52 Physical assessment completed. ASA score P 3 - A patient with severe systemic disease as per Eulalio aGrcia MD. 12:00:56 Sedation plan: IV Moderate Sedation Versed, Fentanyl 12:01:06 Use device set Femoral PCI 12:01:08 Acist Syringe opened to sterile field. 12:01:08 Acist Hand Control opened to sterile field. 12:01:08 Bag Decanter opened to sterile field. 12:01:09 Medline Cath Pack opened to sterile field. 12:01:09 Terumo 6Fr [place]insdale Sheath opened to sterile field. 12:01:10 St Rudy 260cm J .035 wire opened to sterile field. 12:01:11 Merit BasixCompak Inflation Kit opened to sterile field. 12:01:18 Acist Manifold opened to sterile field. 12:01:18 Tegaderm 4 x 4 opened to sterile field. 12:02:53 Versed 0.5 mg I.V. was administered by Xavier Ramesh RN; for sedation; 12:02:58 Fentanyl 25 mcg I.V. was administered by Xavier Ramesh RN; for sedation; 12:03:46 Russell Whisper J 300cm 0.014 guide wire opened to sterile field. 12:05:48 Zero performed for pressure channel P1 12:06:24 Zero performed for pressure channel P1 12:08:09 Procedure started. 12:08:31 Local anesthetic to right femoral artery with Lidocaine 2% by Eulalio Garcia MD.INITIAL ACCESS ONLY 12:08:40 A 6 Fr Short sheath was inserted into the Right Femoral artery 12:09:08 Cordis 6FR XBLAD 3.5 guide catheter opened to sterile field. 12:09:59 6 Fr xblad 3.5 guide catheter was inserted over the wire 12::26 Heparin Bolus 4000 units I.V. was administered by Xavier Ramesh RN; for anticoagulation; 12:: LCA angiography performed. 12:11:38 whisper wire advanced. 12:13:43 Inflation Number: 1 A Medtronic Resolute 3.0 X 15 stent was prepped and advanced across the Prox LAD. The stent was deployed at 13 [place] for 0:10 (min:sec). 12:15:03 Stent catheter was removed intact over wire. 12:15:03 Wire removed. 12:15:04 Guide catheter removed. 12:15:11 Cordis 6Fr Exoseal opened to sterile field. 12:15:40 Sheath removed intact; hemostasis achieved with Exoseal to the Right Femoral artery. 12:17:26 Procedure ended.(Physican Out) 12:18:02 Fluoroscopy time 01.40 minutes. 12:18:21 Contrast amount:Isovue 370 35ml. 12:18:30 Flurop Dose total: 93.27 12:18:30 Fluoroscopy dose: 93.27 mGy 12:18:32 Sharps counted by scrub and verified by R.N. 12:18:33 Insertion/operative site no bleeding no hematoma. 12:18:36 Post-op/insertion site Right Femoral artery dressed using a 4 x 4 and Tegaderm. 12:18:39 Post right femoral artery:stable 12:18:40 Post Procedure Pulses reassessed and unchanged 12:18:43 Post procedure rhythm: unchanged. 12:18:46 Estimated blood loss: 5 ml 12:18:47 Post procedure instruction explained to patient.Patient verbalizes understanding. 12:18:48 Patient needs reinforcement of post procedure teaching. 12:19:03 Procedure type changed to Cath procedure, PCI procedure, Coronary Stent Initial, Miscellaneous Procedures, Moderate Sedation up to 30 minutes 12:19:04 Procedure and supply charges have been captured, reviewed, submitted and are correct. 12:19:09 Procedure Complication : No complications 12:19:11 Vital chart was stopped 12:19:12 See physician's report for complete and final results. 12:19:26 Report given to Pre/Post Procedure Room. 12:19:29 Patient transfered to Pre/Post Procedure Room with Stretcher. 12:19:32 Procedure ended. 12:19:32 Full Disclosure recording stopped 12:20:11 ACC-PCI Only Patient was given prescriptions, or instructed by Eulalio Garcia MD to start/continue the following medications upon discharge: Plavix 12:20:13 End room use (Document Last) 12:21:23 Patient Height : 170.18 cm 12:21:46 Patient Weight : 48.08 kg Intervention Summary Intervention Notes Time ActionType Lesion and Equipment Action# Pressure Duration Attributes Used 12:13:43 Place stent Prox LAD Medtronic 1 13 00:10 Resolute 3.0 X 15 stent Device Usage Item Name Manufacture Quantity Catalog Hospital Part Current Minimal Lot# / Number Charge Number Stock Stock Serial# Code Acist Acist 1 61717 005933 096697 383944 20 Syringe Medical Systems Inc Acist Hand Acist 1 28461 885881 037837 317728 5 Control Medical Systems Inc Bag Microtek 1 2002S 031708 18500 973559 5 DecSchoolOut [employer] Inc. Medline Cardinal 1 [id number] 201621 44569 167239 5 Cath Pack Health Terumo 6Fr Terumo 1 [id number] 549716 242197 054563 [address] Rudy 1 047102 245344 674614 101611 30 260cm J .035 wire Merit Merit 1 [id number] 201664 977852 276829 15 BasixCallix Brasilk Medical Inflation Kit Acist Acist 1 74331 243795 571775 615710 5 Manifold Medical Systems Inc Tegaderm 4 3M 1 1626W 417364 062259 714671 5 x 4 Russell Russell 1 [id number] 914305 062942 428748 5 Whisper J Vascular 300cm 0.014 guide wire Cordis 6FR Cardinal 1 [id number] 295550 005236 870782 10 XBLAD 3.5 Health guide catheter Medtronic Medtronic 1 [id number] 400577 491005 6 [id number] Resolute 3.0 X 15 stent Cordis 6Fr Cardinal 1 EX600 687065 055173 012669 10 Enchanted Lighting Signature Audit [place] Time Signature Unsigned Intra-Procedure 08/18/2016 Zuly Stafforden 12:23:48 PM RT(R) Signatures Monitor : Misty Spivey Signature : RT Date : Time : [address] [place] [address]
[~2016-08-18 09:19] MED LIST changes: +BETAPACE 80 MG80 MG PO; +LEVAQUIN500 MG PO; +OMEPRAZOLE20 M1 PO; -PHOSLO667 MG; +PHOSLO667 MG PO; +PLAVIX75 MG PO; -PRILOSEC20 MG
[2016-08-18] MEDS ORDERED: ZOLOFT100 MG PO (10:06)
[2016-08-18] MEDS ORDERED: PREDNISONE5 MG PO (10:06)
[2016-08-18] MEDS ORDERED: RENVELA800 MG PO (10:06)
[2016-08-18 10:10] VITALS: BP 123/68; BMI 16.6
[2016-08-18 10:16] LABS: BASOPHILS 0.5 % (0-2); EOSINOPHILS 3.9 % (0-7); HEMATOCRIT 38.3 % (42.0-54.0); HEMOGLOBIN 12.5 g/dL (13.5-17.5); IMMATURE GRANULOCYTES 0.7 % (0-5); LYMPHOCYTES 19.9 % (15-50); MCH 34.6 pg (26.0-34.0); MCHC 32.6 g/dL (31.0-37.0); MCV 106.1 fL (80.0-100.0); MEAN PLATELET VOLUME 8.6 fL (7.4-10.4); MONOCYTES 12.3 % (2-11); NEUTROPHILS 62.7 % (40-80); PLATELET COUNT 153 10x3/uL (130-400); RBC 3.61 10x6/uL (4.20-6.10); RDW 15.1 % (11.5-14.5); WBC 8.1 10x3/uL (4.8-10.8)
[2016-08-18 10:28] LABS: CALCIUM 9.1 mg/dL (8.5-10.1); CARBON DIOXIDE 31.1 mmol/L (21.0-32.0); CREATININE - SERUM 6.7 mg/dL (0.6-1.3); POTASSIUM - SERUM 5.1 mmol/L (3.5-5.1)
--- NOTE | 2016-08-18 13:56 | NUR ---
1245-RIGHT GROIN CDI, NO HEMATOMA OR BLEEDING NOTED, SOFT TO TOUCH 1315-NO CHANGE IN RIGHT GROIN, AT SIDE
--- NOTE | 2016-08-18 17:45 | NUR ---
1235-LATE ENTRY- UPON RETURN FROM NETWORK DIAGNOSTIC SUPPORT SPECIALIST - 600 CC NS INFUSED, NS CLAMPED.
--- NOTE | 2016-08-18 18:52 | NUR ---
1840-REPORT CALLED TO SHUN ON MED 2, TRANSPORT VIA STRETCHER TO ROOM 2131. RENAL DRS WILL EVALUATE.
--- NOTE | 2016-08-18 19:21 | NUR ---
RECEIVED FROM O.P. AT BEDSIDE, CALL LIGHT IN REACH, VITALS ARE GOOD, IV-RAC, BED IS LOW, SRX2, WILL CONTINUE WITH PLAN OF CARE
[2016-08-18 20:00] VITALS: BP 82/41
[2016-08-19 01:32] VITALS: BP 87/48
[2016-08-19 01:33] VITALS: BP 90/48; Ht 170.2 cm; Wt 80.0 kg
--- NOTE | 2016-08-19 01:44 | NUR ---
DIALYSIS DONE AT BEDSIDE. NO DISTRESS.
[2016-08-19 04:16] VITALS: BP 86/44
--- NOTE | 2016-08-19 04:26 | NUR ---
PT SLEEPING, NO DISTRESS NOTICED, BED IS LOW, SRX2, CALL LIGHT IN REACH, WILL CONTINUE WITH PLAN OF CARE
--- NOTE | 2016-08-19 07:40 | NUR ---
PATINT SITTING UP IN HIS BED, SEMIFOWLERS. HE AND STATES THAT THEY ARE ANXIOUS TO BE HOME. HE DENIES PAIN/NEEDS OR DISCOMFORT. CALL LIGHT IS WITHIN HIS REACH.
[2016-08-19 08:33] VITALS: BP 103/53
--- NOTE | 2016-08-19 11:48 | NUR ---
DISCUSSED DISCHARGE INSTRUCTIONS WITH HE AND HIS . SHE UNDERSTANDS TO NO LONGER TAKE THE COREG. SHE HAS DISCUSSED WITH ANTONI CARRION APN AND WILL NOT BE RETURNING TO DIALYSIS TODAY. CALLED WHEELCHAIR TO ESCORT HIM TO THE FRONT DOOR.
--- NOTE | 2016-08-21 16:36 | HP ---
PATIENT: MAKEDA ULLOA MEDICAL RECORD: [id number] ACCOUNT: [id number] LOCATION:[facility] : 52 ADMISSION DATE: 08/18/16 HISTORY AND PHYSICAL EXAMINATION ADMITTING DIAGNOSES: 1. Angina. 2. Coronary artery disease. 3. Recent percutaneous transluminal coronary angioplasty stent vein graft to RCA with concomitant disease of eyak LAD. 4. Hypertension. 5. Hyperlipidemia. HISTORY OF PRESENT ILLNESS: Mr. Ulloa presents with anginal symptomatology, found to have 2 areas with significant stenosis, the non-grafted LAD diagonal as well as a vein graft to the RCA, he underwent successful PTCA stent of the vein graft to the RCA, now brought back for PTCA stent of the LAD diagonal. PHYSICAL EXAMINATION: GENERAL APPEARANCE: Well-nourished, well-developed, appears stated age. Level of distress, comfortable. PSYCHIATRIC: Mental status, alert, normal affect. Orientation, oriented to time, place and person. EYES: Lids and conjunctiva, noninjected. No discharge, no pallor. ENT: Lips, teeth, gums, normal dentition. Oropharynx, no cyanosis, no pallor. NECK: Carotid arteries, bilateral normal upstroke, no bruits, no thrills. JUGULAR VEINS: No jugular venous pressure or distention. CERVICAL LYMPH NODES: Nontender, nonenlarged. THYROID: Not enlarged. Nontender. No nodules. LUNGS: Respiratory effort, unlabored. CHEST: Normal curvature. No thoracic deformity. No chest wall tenderness. Percussion, resonant. Auscultation, clear. No wheezes, no rales, no rhonchi. CARDIOVASCULAR: Precordial exam, nondisplaced. No heaves or pericardial thrills. Rate and rhythm, regular. Heart sounds, normal S1, normal S2. No S3, no gallop, no rub. Systolic murmur, not heard. Diastolic murmur, not heard. EXTREMITIES: No cyanosis, no edema. Peripheral pulses, full and equal in all extremities, except as noted. No bruits appreciated. ABDOMEN: Soft, nondistended. Normal aorta. No bruit. Nontender. No masses. Liver, nontender, no hepatomegaly. Spleen, nontender, no splenomegaly. MUSCULOSKELETAL: No joint tenderness. No joint swelling. No erythema. NEUROLOGICAL: Normal gait, normal strength, normal tone. SKIN: Warm and dry. REVIEW OF SYSTEMS: The patient reports easy bruising but reports no swollen glands. The patient reports no fever, no night sweats, no significant weight gain, no significant weight loss. No significant exercise tolerance. The patient reports no dry eyes, no irritation, no vision change. Patient reports no difficulty hearing and no ear pain. Patient reports no frequent nose bleeds or nose and sinus problems. Patient reports on arm pain on exertion. No shortness of breath while lying down. No history of heart murmur. Patient reports no cough, no wheezing or coughing up blood. Patient reports no abdominal pain, no vomiting. Normal appetite. No diarrhea and not vomiting blood. No nausea and no constipation. Patient reports no incontinence. No difficulty urinating. No hematuria. No increased frequency. Patient reports no muscle aches. No weakness, no arthralgias, no back pain. No swelling of the HISTORY AND PHYSICAL [id number] MELVIN,MAKEDA LAURENT extremities. Patient reports no abnormal mole, no jaundice, no rashes. Reports no loss of consciousness. No weakness and no numbness. No seizures, dizziness, or headaches. The patient reports no depression, no sleep disturbance, feeling safe in a relationship and no alcohol abuse. Patient reports on fatigue. Reports no runny nose or sinus pressure. No itching, no hives, and no frequent sneezing. OVERALL IMPRESSION: Anginal chest discomfort, we will proceed with percutaneous transluminal coronary angioplasty stent of the non-grafted LAD diagonal. TRANSINT:[id number] Voice Confirmation ID: [id number] DOCUMENT ID: [id number] NAOMI ROCA MD at 1636 CC: [id number] DICTATION DATE: 08/18/16 1024 REWRITE EDITOR: 08/18/16 1412 DEP CLI 08/19/16 [place] [address]
--- NOTE | 2016-08-21 16:36 | OP ---
PATIENT NAME: MAKEDA CHARLES MEDICAL RECORD: [id number] :52 LOCATION:D.CAT ADMISSION DATE: SURGEON: NAOMI ROCA MD DATE OF OPERATION: 08/18/2016 PROCEDURES: 1. PTCA stent LAD. 2. Selective coronary angiography. INDICATION: Angina and coronary artery disease. PROCEDURE IN DETAIL: After informed consent was obtained and after detailed explanation of risks, benefits as well as alternative therapies, the patient elected to proceed with angiogram and angioplasty. The right femoral area was prepped and draped in normal sterile fashion. The right femoral artery was cannulated via modified Seldinger technique with placement of 6-Thai sheath. All catheters exchanged through this sheath. FINDINGS: The left anterior descending has greater than 70% stenosis proximally leading into the non-grafted LAD diagonal, it is relatively large, it was addressed with a 3.0 x 15 mm Resolute stent. Result was 0% residual stenosis. OVERALL IMPRESSION: Successful percutaneous transluminal coronary angioplasty stent of the LAD going from greater than 70% initial stenosis to 0% residual. TRANSINT:[id number] Voice Confirmation ID: [id number] DOCUMENT ID: [id number] NAOMI ROCA MD at 1636 CC: [id number] DICTATION DATE: 08/18/16 1217 SOUND TRUCK OPERATOR: 08/18/16 1836 DEP CLI 08/19/16 [place] [id number] [place] [address]
== END 2016-08-19 11:50 | disposition home or self-care (01) ==
LOC: D.CATH 09:19 → D.M2 18:54 → D.CATH 08-19 11:30
PROVIDERS: Internal Medicine Interventional Cardiology
DX: I25.119 Atherosclerotic heart disease of native coronary artery with unspecified angina pectoris (principal); Z01.812 Encounter for preprocedural laboratory examination